=== PATIENT | male | born 1970 | race Caucasian/White ===

== ENCOUNTER 2024-08-09 15:21 | Outpatient (AMB) | payer OTHER, SELFPAY ==
--- NOTE | 2024-08-09 15:40 | A.OFFVIS_ITS ---
Intake Visit Reasons: urinary frequency/nocturia Intake Note: New Patient presents for initial visit for urinary frequency and nocturia Urology Medications: none Blood Thinner: none PVR: 179ml's Yield Engineer Required: No Accompanied by: Self / Same As Patient Allergies No Known Allergies Allergy (Verified 08/09/24 21:05) Medication List - Last Reconciled 08/09/24 by FATOU Verduzco atorvastatin 20 mg PO DAILY lisinopril 20 mg PO DAILY metformin ER 500 mg PO DAILY tirzepatide (weight loss) (Zepbound) mg subcut HPI Comments Details: Reji is a very pleasant 54-year-old male patient of Dr. Marshall. He has a past medical history of hypertriglyceridemia, left ventricular hypertrophy echo 2023 LVEF 65-70%, subclinical hypothyroidism, type 2 diabetes, hypertension, and sleep apnea with compliance since CPAP. He presents to the office today as a new patient for nocturia. In discussion with the patient today he reports a longstanding history of nocturia for many years however feels it is worsening. He reports having followed up with a urologist a few years ago at which time recommendations were made for compliance since CPAP to improve episodes of nocturia. However, in discussion with the patient today he does report compliance since CPAP in despite in doing so he continues with episodes of nocturia at minimum 2 times per night. He reports attempting to limit fluids 2-3 hours prior to bed to assist with nocturia. He reports at times he also feels feelings of incomplete bladder emptying. He otherwise denies urinary urgency, urinary frequency, incontinence, hematuria, dysuria, foul smelling urine, changes to urinary stream, flank pain, fever, and or chills. In office urinalysis results reviewed with the patient today. PVR 179 mL. We discussed at length potential causes of nocturia as well as feelings of incomplete bladder emptying. We also discussed incomplete bladder emptying noted on in office postvoid residual today. We also discussed the importance of management and diabetes for improvement in lower urinary tract symptoms as well as overall health and well-being. We discussed further treatment options and risks and benefits of these treatment options. All questions were answered. He discusses his upcoming travels on a few cruises as well as [place]. He otherwise offers no other issues or concerns at this time. Plan Initial management will involve lifestyle modifications aimed at addressing nocturia and feelings of incomplete bladder emptying, with emphasis on fluid management before bed and techniques such as double-voiding. Compression stockings are advised to reduce peripheral swelling, potentially contributing to fluid retention. A formal ultrasound and bloodwork will evaluate prostate health, considering the post-void residual. Medication such as an alpha-uma will be considered if symptoms continue, weighing the potential therapeutic benefits. The patient understands and agrees with the initial non- pharmacological approach. Patient was informed and verbally consented to the use of an ambient scribe for clinic note documentation during this visit. Discussion Notes I discussed the diagnosis and management options for nocturia and feelings of incomplete bladder emptying with the patient. I explained the importance of fluid management and bladder training techniques, including double-voiding and the potential for sitting during urination to optimize bladder emptying. We discussed the possible future use of alpha-blockers and highlighted the importance of balancing benefits against potential side effects. Given his use of CPAP, I emphasized the benefits of optimal bladder function in improving sleep quality. An ultrasound and prostate evaluation bloodwork were recommended for further investigation. The patient understands and consents to follow the recommended strategies, prioritizing non-pharmacological methods and lifestyle adjustments at this time. [facility] Medical History Hypertriglyceridemia LVH (left ventricular hypertrophy) Subclinical hypothyroidism Type 2 diabetes mellitus Hypertension Sleep apnea Surgical History History of cholecystectomy Review of Systems Const All systems reviewed & are unremarkable except as noted in HPI and below Physical Exam Const General: cooperative, healthy appearing, comfortable, no acute distress, well developed, alert and awake Nutritional Appearance: overweight Orientation/consciousness: patient oriented x3 Limitations: no limitations HEENT Head: Yes normal to inspection, Yes normocephalic and Yes atraumatic Ears: hearing grossly normal bilaterally Eyes General: appearance normal, both eyes and all related structures Neck Neck: Yes normal visual inspection and Yes trachea midline Chest Chest palpation & inspection: normal inspection of the chest Resp Effort & Inspection: normal respiratory effort and able to speak in complete sentences Cardio Rate: regular rate GI Inspection: Yes normal to inspection General: Yes no CVA tenderness Back/Spine/Pelvis Back: no CVA tenderness Skin General skin exam: no rashes or lesions noted Neuro General: patient oriented x3 Extrem General: Yes normal to inspection Psych Appearance: grossly normal and well kempt Mental Status: mental status grossly normal Speech and movement: Normal speech and movement present and Clear speech present Affect: normal affect Attitude: cooperative Thought process: Normal thought process present Thought content: Normal thought content present Insight: Fair insight present (Psych) Judgement: Fair judgement present (Psych) Office Procedures Post Void Residual Post Residual Void Post Void Residual (PVR): 179 [id number]-[id number] Void Residual by ultrasound Results AMB Urinalysis, Automated UA Leukoctes 0 Cassandra/uL [facility] 08/09/24 16:17 UA Nitrite Last Edit by [employer] on 08/09/24 16:17 UA Urobilinogen 0.2 mg/dL Last Edit by [employer] on 08/09/24 16:17 UA Protein 0 mg/dL Last Edit by [employer] on 08/09/24 16:17 UA pH 5.5 Last Edit by [employer] on 08/09/24 16:17 UA Blood 0 Ashwin/uL Last Edit by [employer] on 08/09/24 16:17 UA Specific [place] 1.025 Last Edit by [employer] on 08/09/24 16:17 UA Ketone Last Edit by [employer] on 08/09/24 16:17 UA Bilirubin 0 mg/dL Last Edit by [employer] on 08/09/24 16:17 UA Glucose 0 mg/dL Last Edit by [employer] on 08/09/24 16:17 Results Reviewed Results Reviewed: Laboratory Last Values Urine pH (Auto) 5.5 08/09/24 15:42 Specific [place] (Auto) 1.025 08/09/24 15:42 Urine Protein (Auto) 0 mg/dL 08/09/24 15:42 Glucose (UA)(Auto) 0 mg/dL 08/09/24 15:42 Urine Blood (Auto) 0 Ashwin/uL 08/09/24 15:42 Urine Bilirubin (Auto) 0 mg/dL 08/09/24 15:42 Urine Urobilinogen (Auto) 0.2 mg/dL 08/09/24 15:42 Leukocyte Esterase (Auto) 0 Cassandra/uL 08/09/24 15:42 Assessment & Plan Assessment & Plan (1) Nocturia: Code(s): R35.1 - Nocturia Category: Medical (2) Incomplete bladder emptying: Code(s): R33.9 - Retention of urine, unspecified Category: Medical Plan In office urinalysis results reviewed with the patient today; as noted above PVR 179 mL. We discussed at length potential causes of nocturia and incomplete bladder emptying. We discussed further interventions and risks and benefits of these interventions. We discussed lifestyle modifications to assist with these urological conditions We also discussed the importance of management and diabetes as well as weight loss in relation to these lower urinary tract symptoms as well as overall health and well-being. Will continue with lifestyle modifications at this time. Will obtain PSA and A1c for further assessment evaluation. Will obtain retroperitoneal ultrasound for further assessment evaluation. Follow-up in 1-3 months with imaging and labs to be completed prior; or sooner with any issues, concerns, and or questions. Orders: Orders AMB Urinalysis Automated Today Z13.9 - Encounter for screening, unspecified Prostate Specific Antigen Today R33.9 - Retention of urine, unspecified, R35.1 - Nocturia AMB Post Void Residual by ultrasound Today Z13.9 - Encounter for screening, unspecified US retroperitoneal comp Today R33.9 - Retention of urine, unspecified, R35.1 - Nocturia Hemoglobin A1c Today E11.9 - Type 2 diabetes mellitus without complications Patient Instructions: The patient had an opportunity to ask questions regarding the treatment plan. All questions were answered. Physical exam, labs, and imaging were discussed and reviewed in detail. As well as risks, benefits, and discussion of treatment choices. No major barriers to understanding were identified. The patient expressed understanding and agreement with the above treatment plan. The patient was made aware they should contact our office by phone for worsening of their current condition, the appearance of new symptoms, or with any questions or concerns. Compliance is encouraged with any medications and follow up testing that is ordered. It is a privilege to be allowed the opportunity to participate in? your urological care.? Again, if you have any questions or concerns If you have any questions or concerns please do not hesitate to contact me. The office is [phone]. This note is constructed using voice recognition software. While every effort has been made to ensure accuracy hook up driver errors may have been included. Yours sincerely, CHAVEZ Verduzco-ESAU Coding Level of Care Code New Pt Level 4 (59182) Diagnoses Nocturia R35.1 Incomplete bladder emptying R33.9 CPT Codes Post Residual Void - PVR CPT Code: 98581-Hrkl Void Residual by ultrasound ([id number]) Time Spent (min) 35
--- OUTSIDE RECORDS SUMMARY | 2024-08-09 15:52 | XMS_ITS | Clinical Summary ---
Author Organization [address] [facility] Address [address] [place] [address] Phone Care Team Providers Care Assembly Machine Feeder Name Role Phone Randy Hewitt DO Primary Care Provider [phone] Encounters Date Type Department Care Team Description 06/14/2024 Telephone [facility] [address] [place] [address] Randy Hewitt DO Medical REcords from Last 3 Months Social History Tobacco Use Types Packs/Day Years Used Date Smoking Tobacco: Never Assessed Sex and Gender Information Value Date Recorded Sex Assigned at Not on file Legal Sex Male 4:33 PM EST Gender Identity Not on file Sexual Orientation Not on file Last Filed Vital Signs Vital Sign Reading Time Taken Comments Blood Pressure 134/82 08/04/2023 3:33 PM EDT Pulse - - Temperature - - Respiratory Rate - - Oxygen Saturation - - Inhaled Oxygen Concentration - - Weight 156 kg (343 lb) 08/04/2023 3:33 PM EDT Height 167.6 cm (5' 6 ) 08/04/2023 3:33 PM EDT Body Mass Index 55.36 08/04/2023 3:33 PM EDT Plan of Treatment Health Maintenance Due Date Last Done Comments Diabetes: Annual Foot Exam 1982 Diabetes: Annual Retina Eye Exam 1982 Colorectal Cancer Screening: Colonoscopy 10/25/2023 Depression Screening 10/25/2023 HIV Screening 10/25/2023 Hepatitis C Screening 10/25/2023 Social Influencers of Health Screening 10/25/2023 Hepatitis B Vaccines (2 of 2 - CpG 2-dose series) 11/01/2023 10/04/2023 COVID-19 Vaccine () 11/27/2023 01/26/2022, 04/06/2021, 05/06/2020, Additional history exists Diabetes: Annual Urine Albumin-Creatinine Ratio (uACR) 06/13/2024 Diabetes: Blood Sugar Control Test (HGBA1C) 12/14/2024 06/13/2024 Diabetes: Annual GFR (Glomerular Filtration Rate) 06/13/2025 06/13/2024 Hypertension/CHF/CAD Annual BMP Blood Test 06/13/2025 06/13/2024 Cholesterol Screening (Lipid Panel) 06/13/2029 06/13/2024 DTaP,Tdap,and Td Vaccines (5 - Td or Tdap) 05/05/2033 05/05/2023, 07/23/2020, 05/31/2019, Additional history exists Pneumococcal Vaccine: 50+ Years Completed 10/04/2023, 01/13/2016 Pneumococcal Vaccine: Pediatrics (0 to 5 Years) and At-Risk Patients (6 to 64 Years) Completed 10/04/2023, 01/13/2016 Zoster Vaccines Completed 10/04/2023, 05/05/2023 Influenza Vaccine Completed 12/20/2023, , 04/06/2021, Additional history exists HIB Vaccines Aged Out No longer eligi ble based on patient's age to complete this topic HPV Vaccines Aged Out No longer eligi ble based on patient's age to complete this topic Hepatitis A Vaccines Aged Out No long er eligible based on patient's age to complete this topic IPV Vaccines Aged Out No longer eligi ble based on patient's age to complete this topic MMR Vaccines Aged Out No longer eligi ble based on patient's age to complete this topic Meningococcal ACWY Vaccine Aged Out N o longer eligible based on patient's age to complete this topic Meningococcal B Vaccine Aged Out No l onger eligible based on patient's age to complete this topic RSV Immunization Patients Under 20 months Aged Out No longer eligible based on patient's age to complete this topic Varicella Vaccines Aged Out No longer eligible based on patient's age to complete this topic Procedures Procedure Name Priority Date/Time Associated Diagnosis Comments CBC WITH AUTO DIFFERENTIAL Routine 06/13/2024 12:07 PM EDT HLD (hyperlipidemia) HTN (hypertension) DM2 (diabetes mellitus, type 2) (CMS/HCC V24, CMS/HCC V28) ALVARO (obstructive sleep apnea) Hypothyroidism LVH (left ventricular hypertrophy) THYROID STIMULATING HORMONE Routine 06/13/2024 12:07 PM EDT HLD (hyperlipidemia) HTN (hypertension) DM2 (diabetes mellitus, type 2) (CMS/HCC V24, CMS/HCC V28) ALVARO (obstructive sleep apnea) Hypothyroidism LVH (left ventricular hypertrophy) B-TYPE NATRIURETIC PEPTIDE Routine 06/13/2024 12:07 PM EDT HLD (hyperlipidemia) HTN (hypertension) DM2 (diabetes mellitus, type 2) (CMS/HCC V24, CMS/HCC V28) ALVARO (obstructive sleep apnea) Hypothyroidism LVH (left ventricular hypertrophy) HEMOGLOBIN A1C Routine 06/13/2024 12:07 PM EDT HLD (hyperlipidemia) HTN (hypertension) DM2 (diabetes mellitus, type 2) (CMS/HCC V24, CMS/HCC V28) ALVARO (obstructive sleep apnea) Hypothyroidism LVH (left ventricular hypertrophy) COMPREHENSIVE METABOLIC PANEL Routine 06/13/2024 12:07 PM EDT HLD (hyperlipidemia) HTN (hypertension) DM2 (diabetes mellitus, type 2) (CMS/HCC V24, CMS/HCC V28) ALVARO (obstructive sleep apnea) Hypothyroidism LVH (left ventricular hypertrophy) CBC AND DIFFERENTIAL Routine 06/13/2024 12:07 PM EDT HLD (hyperlipidemia) HTN (hypertension) DM2 (diabetes mellitus, type 2) (CMS/HCC V24, CMS/HCC V28) ALVARO (obstructive sleep apnea) Hypothyroidism LVH (left ventricular hypertrophy) PROSTATE SPECIFIC ANTIGEN SCREEN Routine 06/13/2024 12:07 PM EDT HLD (hyperlipidemia) HTN (hypertension) DM2 (diabetes mellitus, type 2) (CMS/HCC V24, CMS/HCC V28) ALVARO (obstructive sleep apnea) Hypothyroidism LVH (left ventricular hypertrophy) LIPID PANEL WITH REFLEX TO DIRECT LDL Routine 06/13/2024 12:07 PM EDT HLD (hyperlipidemia) HTN (hypertension) DM2 (diabetes mellitus, type 2) (CMS/HCC V24, CMS/HCC V28) ALVARO (obstructive sleep apnea) Hypothyroidism LVH (left ventricular hypertrophy) from Last 3 Months Results * Prostate specific antigen screen (06/13/2024 12:07 PM EDT) Pathologist [facility] PSA 0.28 0.00 - 4.00 ng/mL LAB CHEMISTRY METHOD 06/13/2024 4:39 PM EDT [facility] Blood Venous blood specimen / Unknown Venipuncture / Unknown 06/13/2024 12:07 PM EDT 06/13/2024 12:08 PM EDT Narrative [facility] - 06/13/2024 4:39 PM EDT The Siemens Advia ScalingDataaur Chemiluminescent Immunoassay is used. Results obtained with different assay methods or kits cannot be used interchangeably. Results cannot be interpreted as absolute evidence of the presence or absence of malignant disease. [facility] LAB BLOOD ORDERABLES Final Resul t [facility] [address] [place] [address], [place] [phone] * Lipid panel with reflex to direct LDL (06/13/2024 12:07 PM EDT) [facility] Cholesterol 129 0 - 200 mg/dL LAB CHEMISTRY METHOD 06/13/2024 4:32 PM EDT [facility] Triglycerides 88 0 - 150 mg/dL LAB CHEMISTRY METHOD 06/13/2024 4:32 PM EDT [facility] HDL 44 >=40 mg/dL LAB CHEMISTRY METHOD 06/13/2024 4:32 PM EDT [facility] LDL Calculated 67 0 - 100 mg/dL LAB CHEMISTRY METHOD 06/13/2024 4:32 PM EDT [facility] VLDL Cholesterol Timmy 17.6 mg/dL LAB CHEMISTRY METHOD 06/13/2024 4:32 PM EDT [facility] Non HDL Chol. (LDL+VLDL) 85 <145 mg/dL LAB CHEMISTRY METHOD 06/13/2024 4:32 PM EDT [facility] Chol/HDL Ratio 2.9 0.0 - 4.4 LAB CHEMISTRY METHOD 06/13/2024 4:32 PM EDT [facility] Blood Venous blood specimen / Unknown Venipuncture / Unknown 06/13/2024 12:07 PM EDT 06/13/2024 12:08 PM EDT [facility] BLOOD ORDERABLES Final Resul t [facility] [address] [place] [address], * (ABNORMAL) CBC auto differential (06/13/2024 12:07 PM EDT) WBC 13.6(H) 4.8 - 10.8 K/mcL LAB HEMETOLOGY METHOD 06/13/2024 2:55 PM EDT [facility] RBC 4.70 4.50 - 5.50 M/mcL LAB HEMETOLOGY METHOD 06/13/2024 2:55 PM EDT [facility] Hemoglobin 14.0 13.5 - 17.5 g/dL LAB HEMETOLOGY METHOD 06/13/2024 2:55 PM EDT [facility] Hematocrit 43.8 42.0 - 54.0 % LAB HEMETOLOGY METHOD 06/13/2024 2:55 PM EDT [facility] MCV 93.0 79.0 - 98.0 FL LAB HEMETOLOGY METHOD 06/13/2024 2:55 PM EDT [facility] MCH 29.7 27.0 - 32.0 pcg LAB HEMETOLOGY METHOD 06/13/2024 2:55 PM EDT [facility] MCHC 32.0 32.0 - 37.0 g/dL LAB HEMETOLOGY METHOD 06/13/2024 2:55 PM EDT [facility] RDW 13.4 11.0 - 15.0 % LAB HEMETOLOGY METHOD 06/13/2024 2:55 PM EDT [facility] Platelets 336 130 - 400 K/mcL LAB HEMETOLOGY METHOD 06/13/2024 2:55 PM EDT [facility] MPV 9.4 7.0 - 11.0 FL LAB HEMETOLOGY METHOD 06/13/2024 2:55 PM EDT [facility] NRBC 0.0 <1.0 % LAB HEMETOLOGY METHOD 06/13/2024 2:55 PM EDT [facility] NRBC Absolute 0.00 <0.10 K/mcL LAB HEMETOLOGY METHOD 06/13/2024 2:55 PM EDT [facility] Neutrophils Relative 72.4 % LAB HEMETOLOGY METHOD 06/13/2024 2:55 PM EDT [facility] Lymphocytes Relative 19.4 % LAB HEMETOLOGY METHOD 06/13/2024 2:55 PM EDT [facility] Monocytes Relative 6.8 % LAB HEMETOLOGY METHOD 06/13[facility]24 [facility] Eosinophils Relative 0.5 % LAB HEMETOLOGY METHOD 06/13/2024 2:55 PM EDT [facility] Basophils Relative 0.3 % LAB HEMETOLOGY METHOD 06/13/2024 2:55 PM EDT [facility] Immature Granulocytes Relative 0.6 % LAB HEMETOLOGY METHOD 06/13/2024 2:55 PM EDT [facility] Neutrophils Absolute 9.87(H) 1.50 - 7.00 K/mcL LAB HEMETOLOGY METHOD 06/13/2024 2:55 PM EDT [facility] Lymphocytes Absolute 2.64 1.00 - 5.00 K/mcL LAB HEMETOLOGY METHOD 06/13/2024 2:55 PM EDT [facility] Monocytes Absolute 0.93 0.20 - 1.00 K/mcL LAB HEMETOLOGY METHOD 06/13/2024 2:55 PM EDT [facility] Eosinophils Absolute 0.07 0.00 - 0.50 K/[facility] LAB HEMETOLOGY METHOD 06/13/2024 2:55 PM EDT [facility] Basophils Absolute 0.04 0.00 - 0.20 K/[facility] LAB HEMETOLOGY METHOD 06/13/2024 2:55 PM EDT [facility] Immature Granulocytes Absolute 0.08(H) 0.00 - 0.03 K/[facility] LAB HEMETOLOGY METHOD 06/13/2024 2:55 PM EDT [facility] Blood Venous blood specimen / Unknown Venipuncture / Unknown 06/13/2024 12:07 PM EDT 06/13/2024 12:08 PM EDT [facility] BLOOD ORDERABLES Final Resul t Performing Organization Address City/[facility]/ZIP Co de Phone Number [facility] [address] [place] [address], [place] [phone] * Thyroid stimulating hormone (06/13/2024 12:07 PM EDT) TSH 3.79 0.40 - 4.00 mcIU/mL LAB CHEMISTRY METHOD 06/13/2024 4:39 PM EDT [facility] Blood Venous blood specimen / Unknown Venipuncture / Unknown 06/13/2024 12:07 PM EDT 06/13/2024 12:08 PM EDT [facility] BLOOD ORDERABLES Final Resul t Performing Organization Address City/[facility]/ZIP Co de Phone Number [facility] [address] [place] [address], [place] [phone] * B-type natriuretic peptide (06/13/2024 12:07 PM EDT) Pathologist [facility] BNP 12 <=100 pcg/mL LAB CHEMISTRY METHOD 06/13/2024 3:13 PM EDT [facility] Blood Venous blood specimen / Unknown Venipuncture / Unknown 06/13/2024 12:07 PM EDT 06/13/2024 12:08 PM EDT [facility] BLOOD ORDERABLES Final Resul t Performing Organization Address [facility]/ZIP Co de Phone Number [facility] [address] [place] [address], [place] [phone] * (ABNORMAL) Hemoglobin A1c (06/13/2024 12:07 PM EDT) [facility] Hemoglobin A1C 6.7(H) <6.5 % LAB CHEMISTRY METHOD 06/13/2024 9:52 PM EDT [facility] Mean Bld Glu Estim. 146 mg/dL LAB CHEMISTRY METHOD 06/13/2024 9:52 PM EDT [facility] Blood Venous blood specimen / Unknown Venipuncture / Unknown 06/13/2024 12:07 PM EDT 06/13/2024 12:08 PM EDT [facility] BLOOD ORDERABLES Final Resul t Performing Organization Address City/[facility]/ZIP Co de Phone Number [facility] [address] [place] [address], [place] [phone] * (ABNORMAL) Comprehensive metabolic panel (06/13/2024 12:07 PM EDT) [facility] Sodium 139 133 - 145 mmol/L LAB CHEMISTRY METHOD 06/13/2024 4:32 PM EDT [facility] Potassium 4.6 3.5 - 5.5 mmol/L LAB CHEMISTRY METHOD 06/13/2024 4:32 PM EDT [facility] Chloride 106 96 - 110 mmol/L LAB CHEMISTRY METHOD 06/13/2024 4:32 PM [facility] CO2 28 21 - 32 mmol/L LAB CHEMISTRY METHOD 06/13/2024 4:32 PM [facility] Anion Gap 5 3 - 11 LAB CHEMISTRY METHOD 06/13/2024 4:32 PM [facility] Glucose 114(H) 70 - 100 mg/dL LAB CHEMISTRY METHOD 06/13/2024 4:32 PM [facility] BUN 22 5 - 25 mg/dL LAB CHEMISTRY METHOD 06/13/2024 4:32 PM [facility] Creatinine 1.07 0.70 - 1.30 mg/dL LAB CHEMISTRY METHOD 06/13/2024 4:32 PM [facility] eGFR 84 >=60 mL/min/1. 73m2 LAB CHEMISTRY METHOD 06/13/2024 4:32 PM [facility] Comment:Calculation based on the??Chronic Kidney Disease Epidemiology Collaboration (CKD-EPI) equation refit??without adjustment for race. BUN/Creatinine Ratio 20.6 LAB CHEMISTRY METHOD 06/13/2024 4:32 PM [facility] Calcium 9.5 8.5 - 10.5 mg/dL LAB CHEMISTRY METHOD 06/13/2024 4:32 PM [facility] AST (SGOT) 14 10 - 42 unit/L LAB CHEMISTRY METHOD 06/13/2024 4:32 PM [facility] ALT (SGPT) 42 10 - 60 unit/L LAB CHEMISTRY METHOD 06/13/2024 4:32 PM [facility] Alkaline Phosphatase 52 42 - 121 unit/L LAB CHEMISTRY METHOD 06/13/2024 4:32 PM [facility] Total Protein 7.6 6.0 - 8.0 g/dL LAB CHEMISTRY METHOD 06/13/2024 4:32 PM EDT [facility] Albumin 4.0 3.2 - 5.0 g/dL LAB CHEMISTRY METHOD 06/13/2024 4:32 PM EDT [facility] Total Bilirubin 0.4 0.0 - 1.4 mg/dL LAB CHEMISTRY METHOD 06/13/2024 4:32 PM EDT [facility] Blood Venous blood specimen / Unknown Venipuncture / Unknown 06/13/2024 12:07 PM EDT 06/13/2024 12:08 PM EDT [facility] BLOOD ORDERABLES Final Resul t [facility] [address] [place] [address], [place] [phone] from Last 3 Months Insurance [facility] Care Teams Assembly Machine Feeder Relationship Specialty Start Date End Date Randy Hewitt DO [address] [place] [id number] PCP - General 05/05/23
== END 2024-08-09 16:40 | disposition home or self-care (01) ==
LOC: HO.HUSH 15:22
PROVIDERS: PCP Internal Medicine; Visit Provider Nurse Practitioner Family
DX: R35.1 Nocturia (principal); R33.9 Retention of urine, unspecified; Z13.9 Encounter for screening, unspecified
CPT/HCPCS: 99204

== ENCOUNTER → 2024-08-09 15:21 | Outpatient (BNVA) | payer OTHER, SELFPAY | PROVIDERS: PCP Internal Medicine; Visit Provider Nurse Practitioner Family | DX: R33.9 Retention of urine, unspecified (principal) | CPT/HCPCS: 51798; 81003 ==